=== PATIENT | male | born 1980 | race Caucasian/White ===

== ENCOUNTER 2023-05-18 15:42 | Inpatient (IN) | payer OTHER ==
[2023-05-18 17:59] VITALS: BMI 32.3
[2023-05-18] MEDS ORDERED: MAGNESIUM HYDROX 2400MG/30ML ORAL SUSPENSION 30 ML CUP PO PRN (21:57)
[2023-05-18] MEDS ORDERED: NALOXONE HCL 0.4 MG/ML VIAL IM PRN (21:57)
[2023-05-18] MEDS ORDERED: P-EPHED 60MG/TRIPROLIDI 2.5MG TABLET PO PRN (21:57)
[2023-05-18] MEDS ORDERED: BENZONATATE 200 MG CAPSULE PO PRN (21:57)
[2023-05-18] MEDS ORDERED: POLYETHYLENE GLYCOL (HEALTHYLAX) 3350 17 GM PACKET PO PRN (21:57)
[2023-05-18] MEDS ORDERED: BENZOCAINE/MENTHOL (CHLORASEPTIC ) LOZENGE MM PRN (21:57)
[2023-05-18] MEDS ORDERED: NALOXONE HCL (KLOXXADO) 8 MG SPRAY NS PRN (21:57)
[2023-05-18] MEDS ORDERED: LOPERAMIDE HCL 2 MG CAPSULE PO PRN (21:57)
[2023-05-18] MEDS ORDERED: guaiFENesin 600 MG TABLET.ER (FP) PO PRN (21:57)
[2023-05-18] MEDS ORDERED: MAG HYDROX/AL HYDROX/SIMETH 30 ML UNIT-DOSE CUP PO PRN (21:57)
[2023-05-18] MEDS: THIAMINE HCL 100 MG TABLET (FP) PO SCH (22:23)
[2023-05-18] MEDS: MELATONIN 5 MG TABLETS PO SCH (22:23)
[2023-05-18] MEDS: IBUPROFEN 600 MG TABLET (FP) PO PRN (22:23)
[2023-05-19] MEDS: IBUPROFEN 600 MG TABLET (FP) PO PRN (06:22)
[2023-05-19] MEDS ORDERED: TUBERCULIN PPD 5 TU/0.1ML SYRINGE (IN PATIENT USE ONLY) ID ONE (10:00)
[2023-05-19] MEDS: PRENATAL VITAMINS W/ FOLIC ACID TABLET (FP) PO SCH (10:01)
[2023-05-19] MEDS: ACETAMINOPHEN 325 MG TABLET (FP) PO PRN (10:04)
[2023-05-19] MEDS ORDERED: TUBERCULIN PPD 5 TU/0.1ML VIAL ID ONE (10:05)
[2023-05-19 11:26] LABS: URINE APPEARANCE CLOUDY; URINE BILIRUBIN NEGATIVE (NEGATIVE); URINE COLOR DK YELLOW; URINE GLUCOSE (UA) NEGATIVE (NEGATIVE); URINE KETONE TRACE (NEGATIVE); URINE LEUK ESTERASE NEGATIVE (NEGATIVE); URINE NITRITE NEGATIVE (NEGATIVE); URINE PROTEIN NEGATIVE (NEGATIVE)
[2023-05-19] MEDS: LIDOCAINE 4% PATCH TP SCH (15:33)
[2023-05-19 16:34] LABS: HEMOGLOBIN 12.2 GM/dL (11.7-16.9); MCH 29.3 pg (25.7-33.7); MEAN CELL VOLUME 86.2 fl (80-96); MEAN PLT VOLUME 8.6 fl (7.5-11.1); PLATELET COUNT 271 10^3/uL (134-434); POTASSIUM 4.1 mmol/L (3.5-5.1); RBC 4.18 M/mm3 (4.00-5.60); RDW 14.2 % (11.9-15.9); WHITE BLOOD COUNT 6.6 K/mm3 (4.0-10.0)
[2023-05-19 16:40] LABS: ALBUMIN 2.6 g/dl (3.4-5.0); CALCIUM 8.3 mg/dL (8.5-10.1)
[2023-05-19 16:41] LABS: BLOOD UREA NITROGEN 12.7 mg/dL (7-18)
[2023-05-19 16:42] LABS: CREATININE 0.7 mg/dL (0.55-1.3)
[2023-05-19 16:43] LABS: BILIRUBIN,TOTAL 0.2 mg/dL (0.2-1)
[2023-05-19 16:44] LABS: TOT PROT 5.7 g/dl (6.4-8.2)
[2023-05-19] MEDS: LIDOCAINE PATCH REMOVAL MC SCH (21:16)
[2023-05-19] MEDS: GABAPENTIN 100 MG CAPSULE PO SCH (21:16)
[2023-05-19] MEDS: MELATONIN 5 MG TABLETS PO SCH (21:16)
[2023-05-19] MEDS: THIAMINE HCL 100 MG TABLET (FP) PO SCH (21:16)
[2023-05-20] MEDS: IBUPROFEN 600 MG TABLET (FP) PO PRN (07:55)
[2023-05-20] MEDS: GABAPENTIN 100 MG CAPSULE PO SCH ×2 (10:16→21:11)
[2023-05-20] MEDS: PRENATAL VITAMINS W/ FOLIC ACID TABLET (FP) PO SCH (10:16)
[2023-05-20] MEDS: LIDOCAINE 4% PATCH TP SCH (10:17)
[2023-05-20] MEDS: MELATONIN 5 MG TABLETS PO SCH (21:11)
[2023-05-20] MEDS: THIAMINE HCL 100 MG TABLET (FP) PO SCH (21:11)
[2023-05-20] MEDS: LIDOCAINE PATCH REMOVAL MC SCH (21:12)
[2023-05-21] MEDS: PRENATAL VITAMINS W/ FOLIC ACID TABLET (FP) PO SCH (09:50)
[2023-05-21] MEDS: IBUPROFEN 600 MG TABLET (FP) PO PRN ×3 (09:50→21:31)
[2023-05-21] MEDS: GABAPENTIN 100 MG CAPSULE PO SCH ×2 (09:50→21:30)
[2023-05-21] MEDS: LIDOCAINE 4% PATCH TP SCH (09:51)
[2023-05-21] MEDS: THIAMINE HCL 100 MG TABLET (FP) PO SCH (21:29)
[2023-05-21] MEDS: MELATONIN 5 MG TABLETS PO SCH (21:30)
[2023-05-21] MEDS: LIDOCAINE PATCH REMOVAL MC SCH (21:30)
[2023-05-22] MEDS: IBUPROFEN 600 MG TABLET (FP) PO PRN ×2 (07:57→16:26)
[2023-05-22] MEDS: LIDOCAINE 4% PATCH TP SCH (10:19)
[2023-05-22] MEDS: PRENATAL VITAMINS W/ FOLIC ACID TABLET (FP) PO SCH (10:20)
[2023-05-22] MEDS: GABAPENTIN 100 MG CAPSULE PO SCH ×2 (10:20→21:25)
[2023-05-22] MEDS: ACETAMINOPHEN 325 MG TABLET (FP) PO PRN ×2 (17:54→21:26)
[2023-05-22] MEDS: MELATONIN 5 MG TABLETS PO SCH (21:26)
[2023-05-22] MEDS: LIDOCAINE PATCH REMOVAL MC SCH (21:27)
[2023-05-22] MEDS: THIAMINE HCL 100 MG TABLET (FP) PO SCH (21:27)
[2023-05-23] MEDS: IBUPROFEN 600 MG TABLET (FP) PO PRN ×2 (06:59→16:27)
[2023-05-23] MEDS: PRENATAL VITAMINS W/ FOLIC ACID TABLET (FP) PO SCH (09:19)
[2023-05-23] MEDS: LIDOCAINE 4% PATCH TP SCH (09:19)
[2023-05-23] MEDS: ACETAMINOPHEN 325 MG TABLET (FP) PO PRN (09:19)
[2023-05-23] MEDS: GABAPENTIN 100 MG CAPSULE PO SCH (09:19)
[2023-05-23] MEDS: GABAPENTIN 300 MG CAPSULE PO SCH ×2 (14:27→21:11)
[2023-05-23] MEDS: COLLOIDAL OATMEAL 1 BAR EACH TP PRN (16:35)
[2023-05-23] MEDS: MELATONIN 5 MG TABLETS PO SCH (21:11)
[2023-05-23] MEDS: LIDOCAINE PATCH REMOVAL MC SCH (21:11)
[2023-05-23] MEDS: THIAMINE HCL 100 MG TABLET (FP) PO SCH (21:11)
[2023-05-24] MEDS: hydrOXYzine PAMOATE 25 MG CAPSULE (FP) PO PRN (06:36)
[2023-05-24] MEDS: GABAPENTIN 300 MG CAPSULE PO SCH ×3 (06:36→21:18)
[2023-05-24] MEDS: IBUPROFEN 600 MG TABLET (FP) PO PRN (06:36)
[2023-05-24] MEDS: PRENATAL VITAMINS W/ FOLIC ACID TABLET (FP) PO SCH (09:42)
[2023-05-24] MEDS: LIDOCAINE 4% PATCH TP SCH (09:43)
[2023-05-24] MEDS: COLLOIDAL OATMEAL 1 BAR EACH TP PRN (14:08)
[2023-05-24] MEDS: MELATONIN 5 MG TABLETS PO SCH (21:18)
[2023-05-24] MEDS: THIAMINE HCL 100 MG TABLET (FP) PO SCH (21:18)
[2023-05-24] MEDS: LIDOCAINE PATCH REMOVAL MC SCH (21:18)
[2023-05-25] MEDS: GABAPENTIN 300 MG CAPSULE PO SCH ×3 (06:20→21:10)
[2023-05-25] MEDS: IBUPROFEN 600 MG TABLET (FP) PO PRN ×2 (06:20→21:11)
[2023-05-25] MEDS: hydrOXYzine PAMOATE 25 MG CAPSULE (FP) PO PRN (06:21)
[2023-05-25] MEDS: PRENATAL VITAMINS W/ FOLIC ACID TABLET (FP) PO SCH (10:13)
[2023-05-25] MEDS: LIDOCAINE 4% PATCH TP SCH (10:13)
[2023-05-25] MEDS: ACETAMINOPHEN 325 MG TABLET (FP) PO PRN (10:14)
[2023-05-25] MEDS: MELATONIN 5 MG TABLETS PO SCH (21:10)
[2023-05-25] MEDS: THIAMINE HCL 100 MG TABLET (FP) PO SCH (21:10)
[2023-05-25] MEDS: LIDOCAINE PATCH REMOVAL MC SCH (21:11)
[2023-05-26] MEDS: GABAPENTIN 300 MG CAPSULE PO SCH ×3 (06:30→21:03)
[2023-05-26] MEDS: LIDOCAINE 4% PATCH TP SCH (09:53)
[2023-05-26] MEDS: PRENATAL VITAMINS W/ FOLIC ACID TABLET (FP) PO SCH (09:54)
[2023-05-26] MEDS: CALCIUM 250MG/VIT-D 125 UNITS 1 COMBO TABLET PO SCH (09:54)
[2023-05-26] MEDS: IBUPROFEN 600 MG TABLET (FP) PO PRN ×2 (09:56→21:03)
[2023-05-26] MEDS: ACETAMINOPHEN 325 MG TABLET (FP) PO PRN (13:37)
[2023-05-26] MEDS: THIAMINE HCL 100 MG TABLET (FP) PO SCH (21:03)
[2023-05-26] MEDS: MELATONIN 5 MG TABLETS PO SCH (21:03)
[2023-05-26] MEDS: LIDOCAINE PATCH REMOVAL MC SCH (21:04)
[2023-05-27] MEDS: GABAPENTIN 300 MG CAPSULE PO SCH ×3 (06:20→21:25)
[2023-05-27] MEDS: IBUPROFEN 600 MG TABLET (FP) PO PRN ×3 (06:20→20:08)
[2023-05-27] MEDS: PRENATAL VITAMINS W/ FOLIC ACID TABLET (FP) PO SCH (09:59)
[2023-05-27] MEDS: LIDOCAINE 4% PATCH TP SCH (09:59)
[2023-05-27] MEDS: CALCIUM 250MG/VIT-D 125 UNITS 1 COMBO TABLET PO SCH (09:59)
[2023-05-27] MEDS: COLLOIDAL OATMEAL 1 BAR EACH TP PRN (20:08)
[2023-05-27] MEDS: THIAMINE HCL 100 MG TABLET (FP) PO SCH (21:25)
[2023-05-27] MEDS: MELATONIN 5 MG TABLETS PO SCH (21:25)
[2023-05-27] MEDS: LIDOCAINE PATCH REMOVAL MC SCH (21:25)
[2023-05-28] MEDS: GABAPENTIN 300 MG CAPSULE PO SCH ×3 (06:18→22:24)
[2023-05-28] MEDS: IBUPROFEN 600 MG TABLET (FP) PO PRN (06:19)
[2023-05-28] MEDS: CALCIUM 250MG/VIT-D 125 UNITS 1 COMBO TABLET PO SCH (09:05)
[2023-05-28] MEDS: ACETAMINOPHEN 325 MG TABLET (FP) PO PRN (09:05)
[2023-05-28] MEDS: PRENATAL VITAMINS W/ FOLIC ACID TABLET (FP) PO SCH (09:05)
[2023-05-28] MEDS: LIDOCAINE 4% PATCH TP SCH (09:07)
[2023-05-28] MEDS: THIAMINE HCL 100 MG TABLET (FP) PO SCH (22:24)
[2023-05-28] MEDS: MELATONIN 5 MG TABLETS PO SCH (22:25)
[2023-05-28] MEDS: LIDOCAINE PATCH REMOVAL MC SCH (22:30)
[2023-05-29] MEDS: hydrOXYzine PAMOATE 25 MG CAPSULE (FP) PO PRN (06:12)
[2023-05-29] MEDS: GABAPENTIN 300 MG CAPSULE PO SCH ×3 (06:12→21:09)
[2023-05-29] MEDS: IBUPROFEN 600 MG TABLET (FP) PO PRN ×3 (06:13→21:09)
[2023-05-29] MEDS: LIDOCAINE 4% PATCH TP SCH (10:46)
[2023-05-29] MEDS: CALCIUM 250MG/VIT-D 125 UNITS 1 COMBO TABLET PO SCH (10:46)
[2023-05-29] MEDS: PRENATAL VITAMINS W/ FOLIC ACID TABLET (FP) PO SCH (10:46)
[2023-05-29] MEDS: ACETAMINOPHEN 325 MG TABLET (FP) PO PRN (10:48)
[2023-05-29] MEDS: MELATONIN 5 MG TABLETS PO SCH (21:08)
[2023-05-29] MEDS: THIAMINE HCL 100 MG TABLET (FP) PO SCH (21:08)
[2023-05-29] MEDS: LIDOCAINE PATCH REMOVAL MC SCH (22:03)
[2023-05-30] MEDS: GABAPENTIN 300 MG CAPSULE PO SCH ×2 (06:17→21:01)
[2023-05-30] MEDS: IBUPROFEN 600 MG TABLET (FP) PO PRN (06:17)
[2023-05-30] MEDS: hydrOXYzine PAMOATE 25 MG CAPSULE (FP) PO PRN ×2 (06:18→21:02)
[2023-05-30] MEDS: PRENATAL VITAMINS W/ FOLIC ACID TABLET (FP) PO SCH (10:00)
[2023-05-30] MEDS: CALCIUM 250MG/VIT-D 125 UNITS 1 COMBO TABLET PO SCH (10:01)
[2023-05-30] MEDS: LIDOCAINE 4% PATCH TP SCH ×2 (10:01→14:59)
[2023-05-30] MEDS: ACETAMINOPHEN 325 MG TABLET (FP) PO PRN ×3 (10:03→21:03)
[2023-05-30] MEDS ORDERED: AZITHROMYCIN 250 MG TABLET PO ONE (12:26)
[2023-05-30] MEDS ORDERED: GABAPENTIN 300 MG CAPSULE PO SCH ×2 (14:00→14:21)
[2023-05-30] MEDS: IBUPROFEN 400 MG TABLET (FP) PO PRN ×2 (14:11→21:02)
[2023-05-30] MEDS: MELATONIN 5 MG TABLETS PO SCH (21:01)
[2023-05-30] MEDS: THIAMINE HCL 100 MG TABLET (FP) PO SCH (21:02)
[2023-05-30] MEDS: LIDOCAINE PATCH REMOVAL MC SCH (21:04)
[2023-05-30] MEDS: METHOCARBAMOL 500 MG TABLET PO PRN (21:43)
[2023-05-31] MEDS: METHOCARBAMOL 500 MG TABLET PO PRN ×4 (03:10→21:18)
[2023-05-31] MEDS: ACETAMINOPHEN 325 MG TABLET (FP) PO PRN ×2 (03:11→13:41)
[2023-05-31] MEDS: IBUPROFEN 600 MG TABLET (FP) PO PRN ×3 (03:12→21:18)
[2023-05-31] MEDS: GABAPENTIN 300 MG CAPSULE PO SCH ×3 (06:37→21:17)
[2023-05-31] MEDS: AZITHROMYCIN 250 MG TABLET PO SCH (10:20)
[2023-05-31] MEDS: PRENATAL VITAMINS W/ FOLIC ACID TABLET (FP) PO SCH (10:20)
[2023-05-31] MEDS: LIDOCAINE 4% PATCH TP SCH (10:21)
[2023-05-31] MEDS: CALCIUM 250MG/VIT-D 125 UNITS 1 COMBO TABLET PO SCH (10:21)
[2023-05-31] MEDS: THIAMINE HCL 100 MG TABLET (FP) PO SCH (21:17)
[2023-05-31] MEDS: SUVOREXANT 5 MG TABLET PO PRN (21:17)
[2023-05-31] MEDS: LIDOCAINE PATCH REMOVAL MC SCH (21:18)
[2023-06-01] MEDS: GABAPENTIN 300 MG CAPSULE PO SCH ×3 (06:34→21:18)
[2023-06-01] MEDS: METHOCARBAMOL 500 MG TABLET PO PRN ×2 (06:35→21:19)
[2023-06-01] MEDS: hydrOXYzine PAMOATE 25 MG CAPSULE (FP) PO PRN (06:35)
[2023-06-01] MEDS: IBUPROFEN 600 MG TABLET (FP) PO PRN ×3 (06:35→21:18)
[2023-06-01] MEDS: PRENATAL VITAMINS W/ FOLIC ACID TABLET (FP) PO SCH (09:52)
[2023-06-01] MEDS: LIDOCAINE 4% PATCH TP SCH (09:52)
[2023-06-01] MEDS: AZITHROMYCIN 250 MG TABLET PO SCH (09:53)
[2023-06-01] MEDS: CALCIUM 250MG/VIT-D 125 UNITS 1 COMBO TABLET PO SCH (09:54)
[2023-06-01] MEDS: THIAMINE HCL 100 MG TABLET (FP) PO SCH (21:18)
[2023-06-01] MEDS: SUVOREXANT 5 MG TABLET PO PRN (21:19)
[2023-06-01] MEDS: LIDOCAINE PATCH REMOVAL MC SCH (21:19)
[2023-06-02] MEDS ORDERED: hydrOXYzine PAMOATE 50 MG CAPSULE (FP) PO ONE (00:46)
[2023-06-02] MEDS: ACETAMINOPHEN 325 MG TABLET (FP) PO PRN (01:06)
[2023-06-02] MEDS: GABAPENTIN 300 MG CAPSULE PO SCH ×3 (06:35→21:10)
[2023-06-02] MEDS: IBUPROFEN 600 MG TABLET (FP) PO PRN ×3 (06:35→19:47)
[2023-06-02] MEDS: METHOCARBAMOL 500 MG TABLET PO PRN ×3 (06:36→21:10)
[2023-06-02] MEDS: hydrOXYzine PAMOATE 25 MG CAPSULE (FP) PO PRN ×2 (06:36→21:10)
[2023-06-02] MEDS: PRENATAL VITAMINS W/ FOLIC ACID TABLET (FP) PO SCH (11:02)
[2023-06-02] MEDS: AZITHROMYCIN 250 MG TABLET PO SCH (11:02)
[2023-06-02] MEDS: CALCIUM 250MG/VIT-D 125 UNITS 1 COMBO TABLET PO SCH (11:02)
[2023-06-02] MEDS: LIDOCAINE 4% PATCH TP SCH (11:03)
[2023-06-02] MEDS: METHYL SALICYLATE/MENTHOL OINT 30 GM TUBE TP PRN ×2 (11:09→21:11)
[2023-06-02] MEDS: THIAMINE HCL 100 MG TABLET (FP) PO SCH (21:10)
[2023-06-02] MEDS: SUVOREXANT 10 MG TABLET PO PRN (21:11)
[2023-06-02] MEDS: LIDOCAINE PATCH REMOVAL MC SCH (21:12)
[2023-06-02] MEDS ORDERED: SUVOREXANT 5 MG TABLET PO PRN (22:00)
[2023-06-03] MEDS: GABAPENTIN 300 MG CAPSULE PO SCH ×3 (06:30→21:26)
[2023-06-03] MEDS: IBUPROFEN 600 MG TABLET (FP) PO PRN ×3 (06:30→21:28)
[2023-06-03] MEDS: METHOCARBAMOL 500 MG TABLET PO PRN ×2 (06:31→09:48)
[2023-06-03] MEDS: METHYL SALICYLATE/MENTHOL OINT 30 GM TUBE TP PRN (06:57)
[2023-06-03] MEDS: AZITHROMYCIN 250 MG TABLET PO SCH (09:48)
[2023-06-03] MEDS: PRENATAL VITAMINS W/ FOLIC ACID TABLET (FP) PO SCH (09:48)
[2023-06-03] MEDS: CALCIUM 250MG/VIT-D 125 UNITS 1 COMBO TABLET PO SCH (09:49)
[2023-06-03] MEDS: LIDOCAINE 4% PATCH TP SCH (09:49)
[2023-06-03] MEDS: THIAMINE HCL 100 MG TABLET (FP) PO SCH (21:27)
[2023-06-03] MEDS: hydrOXYzine PAMOATE 25 MG CAPSULE (FP) PO PRN (21:27)
[2023-06-03] MEDS: SUVOREXANT 10 MG TABLET PO PRN (21:27)
[2023-06-03] MEDS: LIDOCAINE PATCH REMOVAL MC SCH (21:36)
[2023-06-04] MEDS: IBUPROFEN 600 MG TABLET (FP) PO PRN ×2 (07:05→21:38)
[2023-06-04] MEDS: GABAPENTIN 300 MG CAPSULE PO SCH ×3 (07:05→21:38)
[2023-06-04] MEDS: AZITHROMYCIN 250 MG TABLET PO SCH (10:14)
[2023-06-04] MEDS: PRENATAL VITAMINS W/ FOLIC ACID TABLET (FP) PO SCH (10:14)
[2023-06-04] MEDS: LIDOCAINE 4% PATCH TP SCH (10:15)
[2023-06-04] MEDS: CALCIUM 250MG/VIT-D 125 UNITS 1 COMBO TABLET PO SCH (10:15)
[2023-06-04] MEDS: METHYL SALICYLATE/MENTHOL OINT 30 GM TUBE TP PRN (10:16)
[2023-06-04] MEDS: THIAMINE HCL 100 MG TABLET (FP) PO SCH (21:38)
[2023-06-04] MEDS: SUVOREXANT 10 MG TABLET PO PRN (21:38)
[2023-06-04] MEDS: LIDOCAINE PATCH REMOVAL MC SCH (21:40)
[2023-06-04] MEDS ORDERED: SUVOREXANT 10 MG TABLET PO PRN (22:00)
[2023-06-05] MEDS: IBUPROFEN 600 MG TABLET (FP) PO PRN ×2 (06:33→21:28)
[2023-06-05] MEDS: GABAPENTIN 300 MG CAPSULE PO SCH ×3 (06:33→21:28)
[2023-06-05] MEDS: LIDOCAINE 4% PATCH TP SCH (10:42)
[2023-06-05] MEDS: CALCIUM 250MG/VIT-D 125 UNITS 1 COMBO TABLET PO SCH (10:42)
[2023-06-05] MEDS: PRENATAL VITAMINS W/ FOLIC ACID TABLET (FP) PO SCH (10:43)
[2023-06-05] MEDS: ACETAMINOPHEN 325 MG TABLET (FP) PO PRN (10:44)
[2023-06-05] MEDS: METHOCARBAMOL 500 MG TABLET PO PRN (21:27)
[2023-06-05] MEDS: SUVOREXANT 10 MG TABLET PO PRN (21:28)
[2023-06-05] MEDS: THIAMINE HCL 100 MG TABLET (FP) PO SCH (21:28)
[2023-06-05] MEDS: LIDOCAINE PATCH REMOVAL MC SCH (21:28)
[2023-06-06] MEDS: GABAPENTIN 300 MG CAPSULE PO SCH ×3 (06:18→21:05)
[2023-06-06] MEDS: METHOCARBAMOL 500 MG TABLET PO PRN ×3 (06:19→21:05)
[2023-06-06] MEDS: IBUPROFEN 400 MG TABLET (FP) PO PRN (06:19)
[2023-06-06] MEDS: CALCIUM 250MG/VIT-D 125 UNITS 1 COMBO TABLET PO SCH (10:13)
[2023-06-06] MEDS: PRENATAL VITAMINS W/ FOLIC ACID TABLET (FP) PO SCH (10:13)
[2023-06-06] MEDS: LIDOCAINE 4% PATCH TP SCH (10:13)
[2023-06-06] MEDS: ACETAMINOPHEN 325 MG TABLET (FP) PO PRN (10:15)
[2023-06-06] MEDS: IBUPROFEN 600 MG TABLET (FP) PO PRN ×2 (14:11→21:05)
[2023-06-06] MEDS: SUVOREXANT 10 MG TABLET PO PRN (21:04)
[2023-06-06] MEDS: THIAMINE HCL 100 MG TABLET (FP) PO SCH (21:04)
[2023-06-06] MEDS: LIDOCAINE PATCH REMOVAL MC SCH (21:05)
[2023-06-06] MEDS: hydrOXYzine PAMOATE 25 MG CAPSULE (FP) PO PRN (21:05)
[2023-06-07] MEDS: hydrOXYzine PAMOATE 25 MG CAPSULE (FP) PO PRN (06:38)
[2023-06-07] MEDS: GABAPENTIN 300 MG CAPSULE PO SCH ×3 (06:38→21:46)
[2023-06-07] MEDS: METHOCARBAMOL 500 MG TABLET PO PRN ×2 (06:38→21:47)
[2023-06-07] MEDS: IBUPROFEN 600 MG TABLET (FP) PO PRN ×2 (06:39→21:47)
[2023-06-07] MEDS: PRENATAL VITAMINS W/ FOLIC ACID TABLET (FP) PO SCH (10:35)
[2023-06-07] MEDS: LIDOCAINE 4% PATCH TP SCH (10:35)
[2023-06-07] MEDS: CALCIUM 250MG/VIT-D 125 UNITS 1 COMBO TABLET PO SCH (11:18)
[2023-06-07] MEDS: ACETAMINOPHEN 325 MG TABLET (FP) PO PRN (11:18)
[2023-06-07] MEDS: THIAMINE HCL 100 MG TABLET (FP) PO SCH (21:46)
[2023-06-07] MEDS: SUVOREXANT 10 MG TABLET PO PRN (21:47)
[2023-06-07] MEDS: LIDOCAINE PATCH REMOVAL MC SCH (21:48)
[2023-06-08] MEDS: GABAPENTIN 300 MG CAPSULE PO SCH ×3 (06:40→21:15)
[2023-06-08] MEDS: METHOCARBAMOL 500 MG TABLET PO PRN ×3 (06:40→21:18)
[2023-06-08] MEDS: hydrOXYzine PAMOATE 25 MG CAPSULE (FP) PO PRN (06:41)
[2023-06-08] MEDS: IBUPROFEN 600 MG TABLET (FP) PO PRN ×2 (06:41→21:16)
[2023-06-08] MEDS: CALCIUM 250MG/VIT-D 125 UNITS 1 COMBO TABLET PO SCH (11:01)
[2023-06-08] MEDS: IBUPROFEN 400 MG TABLET (FP) PO PRN (11:01)
[2023-06-08] MEDS: LIDOCAINE 4% PATCH TP SCH (11:02)
[2023-06-08] MEDS: PRENATAL VITAMINS W/ FOLIC ACID TABLET (FP) PO SCH (11:02)
[2023-06-08] MEDS: ACETAMINOPHEN 325 MG TABLET (FP) PO PRN (15:07)
[2023-06-08] MEDS: THIAMINE HCL 100 MG TABLET (FP) PO SCH (21:15)
[2023-06-08] MEDS: SUVOREXANT 10 MG TABLET PO PRN (21:16)
[2023-06-08] MEDS: LIDOCAINE PATCH REMOVAL MC SCH (21:16)
[2023-06-09] MEDS: GABAPENTIN 300 MG CAPSULE PO SCH ×3 (07:10→21:29)
[2023-06-09] MEDS: LIDOCAINE 4% PATCH TP SCH (09:31)
[2023-06-09] MEDS: PRENATAL VITAMINS W/ FOLIC ACID TABLET (FP) PO SCH (09:31)
[2023-06-09] MEDS: IBUPROFEN 600 MG TABLET (FP) PO PRN ×2 (09:31→21:30)
[2023-06-09] MEDS: CALCIUM 250MG/VIT-D 125 UNITS 1 COMBO TABLET PO SCH (09:31)
[2023-06-09] MEDS: THIAMINE HCL 100 MG TABLET (FP) PO SCH (21:29)
[2023-06-09] MEDS: hydrOXYzine PAMOATE 25 MG CAPSULE (FP) PO PRN (21:29)
[2023-06-09] MEDS: SUVOREXANT 10 MG TABLET PO PRN (21:30)
[2023-06-09] MEDS: METHOCARBAMOL 500 MG TABLET PO PRN (21:30)
[2023-06-09] MEDS: LIDOCAINE PATCH REMOVAL MC SCH (21:31)
[2023-06-10] MEDS: METHOCARBAMOL 500 MG TABLET PO PRN ×2 (06:45→13:42)
[2023-06-10] MEDS: hydrOXYzine PAMOATE 25 MG CAPSULE (FP) PO PRN (06:45)
[2023-06-10] MEDS: GABAPENTIN 300 MG CAPSULE PO SCH ×3 (06:45→21:38)
[2023-06-10] MEDS: IBUPROFEN 600 MG TABLET (FP) PO PRN ×3 (06:45→21:40)
[2023-06-10] MEDS: ACETAMINOPHEN 325 MG TABLET (FP) PO PRN (10:05)
[2023-06-10] MEDS: PRENATAL VITAMINS W/ FOLIC ACID TABLET (FP) PO SCH (10:06)
[2023-06-10] MEDS: LIDOCAINE 4% PATCH TP SCH (10:06)
[2023-06-10] MEDS: CALCIUM 250MG/VIT-D 125 UNITS 1 COMBO TABLET PO SCH (10:06)
[2023-06-10] MEDS: LIDOCAINE PATCH REMOVAL MC SCH (21:38)
[2023-06-10] MEDS: THIAMINE HCL 100 MG TABLET (FP) PO SCH (21:38)
[2023-06-10] MEDS: SUVOREXANT 10 MG TABLET PO PRN (21:38)
[2023-06-11] MEDS: GABAPENTIN 300 MG CAPSULE PO SCH ×3 (06:57→21:05)
[2023-06-11] MEDS: METHOCARBAMOL 500 MG TABLET PO PRN ×3 (06:57→21:05)
[2023-06-11] MEDS: IBUPROFEN 600 MG TABLET (FP) PO PRN ×2 (06:58→21:05)
[2023-06-11] MEDS: hydrOXYzine PAMOATE 25 MG CAPSULE (FP) PO PRN ×2 (06:58→21:05)
[2023-06-11] MEDS: PRENATAL VITAMINS W/ FOLIC ACID TABLET (FP) PO SCH (09:55)
[2023-06-11] MEDS: LIDOCAINE 4% PATCH TP SCH (09:56)
[2023-06-11] MEDS: CALCIUM 250MG/VIT-D 125 UNITS 1 COMBO TABLET PO SCH (10:57)
[2023-06-11] MEDS: IBUPROFEN 400 MG TABLET (FP) PO PRN (14:11)
[2023-06-11] MEDS: THIAMINE HCL 100 MG TABLET (FP) PO SCH (21:05)
[2023-06-11] MEDS: SUVOREXANT 10 MG TABLET PO PRN (21:05)
[2023-06-11] MEDS: LIDOCAINE PATCH REMOVAL MC SCH (21:06)
[2023-06-12] MEDS: hydrOXYzine PAMOATE 25 MG CAPSULE (FP) PO PRN (06:47)
[2023-06-12] MEDS: GABAPENTIN 300 MG CAPSULE PO SCH ×3 (06:47→21:09)
[2023-06-12] MEDS: METHOCARBAMOL 500 MG TABLET PO PRN ×3 (06:48→21:09)
[2023-06-12] MEDS: IBUPROFEN 600 MG TABLET (FP) PO PRN ×2 (06:48→13:32)
[2023-06-12] MEDS: PRENATAL VITAMINS W/ FOLIC ACID TABLET (FP) PO SCH (09:59)
[2023-06-12] MEDS: CALCIUM 250MG/VIT-D 125 UNITS 1 COMBO TABLET PO SCH (09:59)
[2023-06-12] MEDS: LIDOCAINE 4% PATCH TP SCH (09:59)
[2023-06-12] MEDS: ACETAMINOPHEN 325 MG TABLET (FP) PO PRN (10:01)
[2023-06-12] MEDS: SUVOREXANT 10 MG TABLET PO PRN (21:09)
[2023-06-12] MEDS: THIAMINE HCL 100 MG TABLET (FP) PO SCH (21:09)
[2023-06-12] MEDS: LIDOCAINE PATCH REMOVAL MC SCH (21:10)
[2023-06-12] MEDS: IBUPROFEN 400 MG TABLET (FP) PO PRN (21:10)
[2023-06-13] MEDS: IBUPROFEN 600 MG TABLET (FP) PO PRN ×2 (06:50→21:05)
[2023-06-13] MEDS: GABAPENTIN 300 MG CAPSULE PO SCH ×3 (06:50→21:04)
[2023-06-13] MEDS: PRENATAL VITAMINS W/ FOLIC ACID TABLET (FP) PO SCH (10:01)
[2023-06-13] MEDS: CALCIUM 250MG/VIT-D 125 UNITS 1 COMBO TABLET PO SCH (10:01)
[2023-06-13] MEDS: LIDOCAINE 4% PATCH TP SCH (10:01)
[2023-06-13] MEDS: ACETAMINOPHEN 325 MG TABLET (FP) PO PRN (13:53)
[2023-06-13] MEDS: SUVOREXANT 10 MG TABLET PO PRN (21:04)
[2023-06-13] MEDS: LIDOCAINE PATCH REMOVAL MC SCH (21:05)
[2023-06-13] MEDS: METHOCARBAMOL 500 MG TABLET PO PRN (21:05)
[2023-06-13] MEDS: THIAMINE HCL 100 MG TABLET (FP) PO SCH (21:06)
[2023-06-13] MEDS ORDERED: SUVOREXANT 10 MG TABLET PO PRN (22:00)
[2023-06-14] MEDS: GABAPENTIN 300 MG CAPSULE PO SCH ×3 (06:35→21:23)
[2023-06-14] MEDS: IBUPROFEN 600 MG TABLET (FP) PO PRN ×3 (06:35→21:23)
[2023-06-14] MEDS: hydrOXYzine PAMOATE 25 MG CAPSULE (FP) PO PRN ×2 (06:35→21:23)
[2023-06-14] MEDS: METHOCARBAMOL 500 MG TABLET PO PRN ×2 (06:36→21:23)
[2023-06-14] MEDS: CALCIUM 250MG/VIT-D 125 UNITS 1 COMBO TABLET PO SCH (09:45)
[2023-06-14] MEDS: PRENATAL VITAMINS W/ FOLIC ACID TABLET (FP) PO SCH (09:45)
[2023-06-14] MEDS: LIDOCAINE 4% PATCH TP SCH (09:47)
[2023-06-14] MEDS: ACETAMINOPHEN 325 MG TABLET (FP) PO PRN (09:47)
[2023-06-14] MEDS: SUVOREXANT 10 MG TABLET PO PRN (21:23)
[2023-06-14] MEDS: THIAMINE HCL 100 MG TABLET (FP) PO SCH (21:23)
[2023-06-14] MEDS: LIDOCAINE PATCH REMOVAL MC SCH (21:24)
[2023-06-14] MEDS ORDERED: SUVOREXANT 10 MG TABLET PO PRN (22:00)
[2023-06-15] MEDS: GABAPENTIN 300 MG CAPSULE PO SCH ×3 (07:21→21:00)
[2023-06-15] MEDS: CALCIUM 250MG/VIT-D 125 UNITS 1 COMBO TABLET PO SCH (09:52)
[2023-06-15] MEDS: ACETAMINOPHEN 325 MG TABLET (FP) PO PRN (09:53)
[2023-06-15] MEDS: METHOCARBAMOL 500 MG TABLET PO PRN ×2 (09:53→21:00)
[2023-06-15] MEDS: IBUPROFEN 400 MG TABLET (FP) PO PRN (09:54)
[2023-06-15] MEDS: LIDOCAINE 4% PATCH TP SCH (09:55)
[2023-06-15] MEDS: PRENATAL VITAMINS W/ FOLIC ACID TABLET (FP) PO SCH (09:57)
[2023-06-15] MEDS: SUVOREXANT 10 MG TABLET PO PRN (21:00)
[2023-06-15] MEDS: hydrOXYzine PAMOATE 25 MG CAPSULE (FP) PO PRN (21:00)
[2023-06-15] MEDS: THIAMINE HCL 100 MG TABLET (FP) PO SCH (21:00)
[2023-06-15] MEDS: IBUPROFEN 600 MG TABLET (FP) PO PRN (21:00)
[2023-06-15] MEDS: LIDOCAINE PATCH REMOVAL MC SCH (21:01)
[2023-06-16] MEDS: GABAPENTIN 300 MG CAPSULE PO SCH ×3 (07:54→21:28)
[2023-06-16] MEDS: LIDOCAINE 4% PATCH TP SCH (10:03)
[2023-06-16] MEDS: PRENATAL VITAMINS W/ FOLIC ACID TABLET (FP) PO SCH (10:03)
[2023-06-16] MEDS: CALCIUM 250MG/VIT-D 125 UNITS 1 COMBO TABLET PO SCH (10:04)
[2023-06-16] MEDS: METHOCARBAMOL 500 MG TABLET PO PRN ×2 (10:05→21:28)
[2023-06-16] MEDS: IBUPROFEN 600 MG TABLET (FP) PO PRN ×2 (10:05→21:27)
[2023-06-16] MEDS: ACETAMINOPHEN 325 MG TABLET (FP) PO PRN ×2 (13:14→18:09)
[2023-06-16] MEDS: hydrOXYzine PAMOATE 25 MG CAPSULE (FP) PO PRN (21:29)
[2023-06-16] MEDS: LIDOCAINE PATCH REMOVAL MC SCH (21:42)
[2023-06-16] MEDS: THIAMINE HCL 100 MG TABLET (FP) PO SCH (21:43)
[2023-06-16] MEDS ORDERED: SUVOREXANT 10 MG TABLET PO PRN (22:00)
[2023-06-17] MEDS: hydrOXYzine PAMOATE 25 MG CAPSULE (FP) PO PRN (06:38)
[2023-06-17] MEDS: GABAPENTIN 300 MG CAPSULE PO SCH ×2 (06:38→13:57)
[2023-06-17] MEDS: METHOCARBAMOL 500 MG TABLET PO PRN (06:39)
[2023-06-17 07:26] VITALS: RESP 17; TEMP 97.3
[2023-06-17 09:52] VITALS: BP 126/72; PULSE 78
[2023-06-17] MEDS: CALCIUM 250MG/VIT-D 125 UNITS 1 COMBO TABLET PO SCH (09:59)
[2023-06-17] MEDS: IBUPROFEN 600 MG TABLET (FP) PO PRN (09:59)
[2023-06-17] MEDS: PRENATAL VITAMINS W/ FOLIC ACID TABLET (FP) PO SCH (10:00)
[2023-06-17] MEDS: LIDOCAINE 4% PATCH TP SCH (10:00)
[2023-06-17] MEDS: ACETAMINOPHEN 325 MG TABLET (FP) PO PRN (13:57)
== END 2023-06-17 14:24 | disposition home or self-care (01) | DRG 772 ==
LOC: YASAS 15:42 → Y3W 21:32
PROVIDERS: ADMIT Allergy & Immunology; ATTEND Psychiatry & Neurology Pain Medicine
PROC: HZ42ZZZ Group Counseling for Substance Abuse Treatment, Cognitive-Behavioral (ICD-10-PCS; principal; 2023-05-18)
DX: F14.20 Cocaine dependence, uncomplicated (principal); F12.20 Cannabis dependence, uncomplicated; F17.210 Nicotine dependence, cigarettes, uncomplicated; F19.24 Other psychoactive substance dependence with psychoactive substance-induced mood disorder; F39 Unspecified mood [affective] disorder; F41.9 Anxiety disorder, unspecified; G47.00 Insomnia, unspecified; R26.89 Other abnormalities of gait and mobility; Z99.89 Dependence on other enabling machines and devices; S92.901D Unspecified fracture of right foot, subsequent encounter for fracture with routine healing; W19.XXXD Unspecified fall, subsequent encounter
CPT/HCPCS: 36415; 80053; 81003; 82962; 85027; 86780; 87635; 93005; 93010

== ENCOUNTER 2023-05-28 14:35 | Emergency (ER) | payer OTHER ==
[2023-05-28 14:48] VITALS: TEMP 98.1; BMI 32.3
[2023-05-28] MEDS ORDERED: morphine CARPU-JECT 4 MG/1 ML DISP.SYRIN IVPUSH ONE (15:06)
[2023-05-28 15:38] LABS: BASO % 0.4 % (0-2.0); EOS % 3.8 % (0-4.5); HEMATOCRIT 40.1 % (35.4-49); HEMOGLOBIN 13.4 GM/dL (11.7-16.9); LYMPH % 16.2 % (8-40); MCH 29.4 pg (25.7-33.7); MCHC 33.4 g/dl (32.0-35.9); MEAN CELL VOLUME 87.8 fl (80-96); MONO % 13.7 % (3.8-10.2); NEUT % 65.9 % (42.8-82.8); PLATELET COUNT 301 10^3/uL (134-434); RBC 4.57 M/mm3 (4.00-5.60); RDW 14.6 % (11.9-15.9); WHITE BLOOD COUNT 8.9 K/mm3 (4.0-10.0)
[2023-05-28] MEDS ORDERED: morphine SULFATE 4 MG/ML VIAL ONE (15:40)
[2023-05-28 15:44] LABS: INR 1.03 (0.83-1.09); PROTHROMBIN TIME (PATIENT) 11.9 SEC (9.7-13.0)
[2023-05-28 15:56] LABS: POTASSIUM 4.3 mmol/L (3.5-5.1)
[2023-05-28 15:58] LABS: BLOOD UREA NITROGEN 20.5 mg/dL (7-18); MAGNESIUM 2.2 mg/dL (1.8-2.4)
[2023-05-28 16:02] LABS: CREATININE 0.7 mg/dL (0.55-1.3)
[2023-05-28 16:03] LABS: BILIRUBIN,TOTAL 0.3 mg/dL (0.2-1); TOT PROT 7.5 g/dl (6.4-8.2)
[2023-05-28 16:06] LABS: ALBUMIN 3.4 g/dl (3.4-5.0)
[2023-05-28] MEDS ORDERED: LIDOCAINE 5% TOPICAL PATCH TP ONE (20:02)
[2023-05-28] MEDS ORDERED: LIDOCAINE 4% PATCH TP ONE (20:22)
[2023-05-28] MEDS ORDERED: METHOCARBAMOL 500 MG TABLET PO ONE (20:26)
[2023-05-28] MEDS ORDERED: METHOCARBAMOL 500 MG TABLET ONE (20:28)
[2023-05-28] MEDS ORDERED: KETOROLAC TROMETHAMINE 15 MG/ML VIAL IVPUSH ONE (20:29)
[2023-05-28] MEDS ORDERED: HYDROmorphone HCl 2 MG/ML VIAL IVPUSH ONE (20:29)
[2023-05-28] MEDS ORDERED: HYDROmorphone HCl 2 MG/ML VIAL ONE (20:34)
[2023-05-28] MEDS ORDERED: KETOROLAC TROMETHAMINE 15 MG/ML VIAL ONE (20:35)
[2023-05-28 21:32] VITALS: BP 122/78; PULSE 82; RESP 18
[2023-05-28] MEDS ORDERED: LIDOCAINE PATCH REMOVAL MC SCH (22:00)
== END 2023-05-28 21:32 | disposition home or self-care (01) ==
LOC: JER 14:35
PROC: 3E033NZ Introduction of Analgesics, Hypnotics, Sedatives into Peripheral Vein, Percutaneous Approach (ICD-10-PCS; principal; 2023-05-28)
PROC: 3E033GC Introduction of Other Therapeutic Substance into Peripheral Vein, Percutaneous Approach (ICD-10-PCS; 2023-05-28)
PROC: 3E033GC Introduction of Other Therapeutic Substance into Peripheral Vein, Percutaneous Approach (ICD-10-PCS; 2023-05-28)
DX: M54.6 Pain in thoracic spine (principal); R06.02 Shortness of breath; Z20.822 Contact with and (suspected) exposure to COVID-19
CPT/HCPCS: 0241U-QW; 36415; 71045-TC-FY; 71275-TC; 74174-TC; 80053; 83735; 83880; 84484; 85025; 85610; 86850; 86900; 86901; 93005; 93010; 99285-25; Q9967

== ENCOUNTER 2023-12-09 12:21 | Inpatient (IN) | payer OTHER ==
[2023-12-09 13:28] VITALS: BMI 25.9
[2023-12-09] MEDS ORDERED: MAG HYDROX/AL HYDROX/SIMETH 30 ML UNIT-DOSE CUP PO PRN (14:09)
[2023-12-09] MEDS ORDERED: MAGNESIUM HYDROX 2400MG/30ML ORAL SUSPENSION 30 ML CUP PO PRN (14:09)
[2023-12-09] MEDS ORDERED: POLYETHYLENE GLYCOL (HEALTHYLAX) 3350 17 GM PACKET PO PRN (14:09)
[2023-12-09] MEDS ORDERED: BENZOCAINE/MENTHOL (CHLORASEPTIC ) LOZENGE MM PRN (14:09)
[2023-12-09] MEDS ORDERED: P-EPHED 60MG/TRIPROLIDI 2.5MG TABLET PO PRN (14:09)
[2023-12-09] MEDS ORDERED: BISACODYL 5 MG TABLET.DR (FP) PO PRN (14:09)
[2023-12-09] MEDS ORDERED: ACETAMINOPHEN 325 MG TABLET (FP) PO PRN (14:09)
[2023-12-09] MEDS ORDERED: NICOTINE POLACRILEX 2 MG LOZENGE BC PRN (14:09)
[2023-12-09] MEDS ORDERED: LOPERAMIDE HCL 2 MG CAPSULE PO PRN (14:09)
[2023-12-09] MEDS ORDERED: BENZONATATE 200 MG CAPSULE PO PRN (14:09)
[2023-12-09] MEDS ORDERED: guaiFENesin 600 MG TABLET.ER (FP) PO PRN (14:09)
[2023-12-09] MEDS ORDERED: IBUPROFEN 400 MG TABLET (FP) PO PRN (14:09)
[2023-12-09] MEDS ORDERED: hydrOXYzine PAMOATE 25 MG CAPSULE (FP) PO PRN (14:09)
[2023-12-09] MEDS ORDERED: NICOTINE POLACRILEX 2 MG GUM BUC PRN (14:09)
[2023-12-09] MEDS ORDERED: DOCUSATE SODIUM 100 MG CAPSULE (FP) PO PRN (14:09)
[2023-12-09] MEDS: THIAMINE 100 MG TABLET PO SCH (21:30)
[2023-12-09] MEDS: MELATONIN 5 MG TABLETS PO SCH (21:30)
[2023-12-09] MEDS: IBUPROFEN 600 MG TABLET (FP) PO PRN (21:30)
[2023-12-10] MEDS: PRENATAL VITAMINS W/ FOLIC ACID TABLET (FP) PO SCH (09:47)
[2023-12-10 13:32] LABS: HEMATOCRIT 39.6 % (35.4-49); HEMOGLOBIN 13.5 GM/dL (11.7-16.9); MCH 30.3 pg (25.7-33.7); MCHC 34.1 g/dl (32.0-35.9); MEAN CELL VOLUME 88.8 fl (80-96); MEAN PLT VOLUME 9.1 fl (7.5-11.1); PLATELET COUNT 343 10^3/uL (134-434); RBC 4.46 M/mm3 (4.00-5.60); WHITE BLOOD COUNT 6.1 K/mm3 (4.0-10.0)
[2023-12-10 13:35] LABS: CALCIUM 9.3 mg/dL (8.5-10.1)
[2023-12-10 13:36] LABS: ALBUMIN 3.1 g/dl (3.4-5.0); BLOOD UREA NITROGEN 15.8 mg/dL (7-18)
[2023-12-10 13:41] LABS: BILIRUBIN,TOTAL 0.3 mg/dL (0.2-1); CREATININE 0.9 mg/dL (0.55-1.3); TOT PROT 6.8 g/dl (6.4-8.2)
[2023-12-13 12:02] LABS: PH,URINE 5.5 (5.0-8.0); URINE APPEARANCE CLEAR; URINE BILIRUBIN NEGATIVE (NEGATIVE); URINE COLOR YELLOW; URINE GLUCOSE (UA) NEGATIVE (NEGATIVE); URINE KETONE NEGATIVE (NEGATIVE); URINE LEUK ESTERASE NEGATIVE (NEGATIVE); URINE NITRITE NEGATIVE (NEGATIVE); URINE PROTEIN NEGATIVE (NEGATIVE); URINE UROBILINOGEN 0.2 mg/dL (0.2-1.0)
[2023-12-14] MEDS: ACAMPROSATE CALCIUM 333 MG TABLET.DR PO SCH (13:27)
[2023-12-14] MEDS: SUVOREXANT 10 MG TABLET PO SCH (21:15)
[2023-12-20] MEDS: SUVOREXANT 10 MG TABLET PO PRN (21:46)
[2023-12-21] MEDS: SUVOREXANT 15 MG TABLET PO PRN (21:02)
[2023-12-23] MEDS: SUVOREXANT 15 MG TABLET PO PRN (21:40)
[2023-12-25] MEDS ORDERED: SUVOREXANT 10 MG TABLET PO PRN (22:00)
[2023-12-26] MEDS ORDERED: BENZOCAINE 20 % GEL TUBE MM PRN (14:24)
[2023-12-26] MEDS: AMOX TR/POT CLAV 500MG/125MG TABLETS (FP) PO SCH (17:07)
[2023-12-27] MEDS: SUVOREXANT 15 MG TABLET PO PRN (21:30)
[2023-12-31] MEDS: SUVOREXANT 15 MG TABLET PO ONE (21:12)
[2024-01-01] MEDS: SUVOREXANT 15 MG TABLET PO ONE (21:29)
[2024-01-02 09:43] VITALS: RESP 16
[2024-01-02] MEDS: SUVOREXANT 15 MG TABLET PO PRN (21:01)
[2024-01-03 06:54] VITALS: BP 106/67; PULSE 60; TEMP 97.3
== END 2024-01-03 09:16 | disposition home or self-care (01) | DRG 772 ==
LOC: YASAS 12:21 → Y3W 15:46
PROVIDERS: ADMIT Allergy & Immunology; ATTEND Psychiatry & Neurology Pain Medicine
PROC: HZ42ZZZ Group Counseling for Substance Abuse Treatment, Cognitive-Behavioral (ICD-10-PCS; principal; 2023-12-09)
DX: F14.20 Cocaine dependence, uncomplicated (principal); F10.20 Alcohol dependence, uncomplicated; F12.20 Cannabis dependence, uncomplicated; F17.210 Nicotine dependence, cigarettes, uncomplicated; F19.24 Other psychoactive substance dependence with psychoactive substance-induced mood disorder; F39 Unspecified mood [affective] disorder; K08.89 Other specified disorders of teeth and supporting structures
CPT/HCPCS: 36415; 80053; 80305; 80307; 81003; 85027; 86780; 87811